=== PATIENT | female | born 1955 | race African-American/Black ===

== ENCOUNTER 2017-04-05 16:58 | Emergency (ER) | payer MEDICAID, OTHER ==
[~2017-04-05] VITALS: Ht 172.7 cm; Wt 91.0 kg
[2017-04-05] MEDS ORDERED: ACETAMINOPHEN 500MG TABLET PO ONE (18:45)
[2017-04-05] MEDS ORDERED: IBUPROFEN 600MG TABLET PO ONE (19:45)
[2017-04-05] MEDS ORDERED: DIPHENHYDRAMINE 50MG CAPSULE PO ONE (21:00)
[2017-04-05] MEDS ORDERED: LISINOPRIL 10MG TABLET PO ONE (21:00)
[2017-04-05 21:10] VITALS: BP 169/98
== END 2017-04-05 21:10 | disposition home or self-care (01) ==
LOC: ER 19:29
DX: J40 Bronchitis, not specified as acute or chronic (principal); M41.9 Scoliosis, unspecified; M19.90 Unspecified osteoarthritis, unspecified site; Z88.2 Allergy status to sulfonamides; Z88.1 Allergy status to other antibiotic agents
CPT/HCPCS: 71010; 99283; Z7610